=== PATIENT | male | born 2000 | race Caucasian/White ===

== ENCOUNTER 2020-09-12 08:48 | Observation (INO) | payer SELFPAY ==
[2020-09-12] VITALS (10 sets, daily range): BP systolic 107–146; BP diastolic 35–76; PULSE 60–115; TEMP 97.8–98.8
[~2020-09-12] VITALS: Ht 190.5 cm; Wt 96.4 kg
[2020-09-12 09:21] LABS: BASO % 0.1 % (0.0-2.0); EOS % 0.3 % (0-4.0); GRAN # 11.9 (1.4-6.5); GRAN % 78.8 % (42.2-75.2); HEMATOCRIT 44.1 % (36.0-47.0); HEMOGLOBIN 14.6 g/dl (12.5-16.1); LYMPH # 1.7 (1.2-3.4); LYMPH % 11.5 % (20.0-51.0); MEAN CELL VOLUME 88 fl (80.0-95.0); MEAN CORPUSCULAR HEMOGLOBIN 29 pg (26.0-32.0); MEAN CORPUSCULAR HGB CONC 33 g/dl (33.0-37.0); MEAN PLATELET VOLUME 9.4 fl (7.4-10.4); MONO # 1.4 (0.1-0.6); PLATELET COUNT 270 K/mm3 (130-400); REDCELL DISTRIBUTION WIDTH-CV 12.9 % (11.5-14.5)
[2020-09-12 09:41] LABS: ALBUMIN 4.7 gm/dL (3.5-5.0); BILIRUBIN,TOTAL 0.5 mg/dL (0.0-1.0); C-REACTIVE PROTEIN 0.6 mg/dL (0.0-0.9); CALCIUM 9.3 mg/dL (8.4-10.2); CREATININE, serum 0.72 (0.66-1.25); POTASSIUM 3.6 mmol/L (3.4-5.0); TOTAL PROTEIN 7.4 gm/dL (6.4-8.2)
[2020-09-12 09:55] LABS: COLLECTION METHOD CLEAN CATCH
[2020-09-12 10:04] LABS: MUCOUS Present /lpf; PH 7 (5-8); SQUAMOUS EPITHELIAL None Seen /hpf; URINE APPEARANCE Clear; URINE BACTERIA None Seen /hpf; URINE BILIRUBIN Negative (NEGATIVE); URINE BLOOD Negative (NEGATIVE); URINE COLOR Yellow; URINE GLUCOSE Negative (NEGATIVE); URINE KETONE Negative (NEGATIVE); URINE LEUKOCYTE ESTERASE Negative (NEGATIVE); URINE NITRATE Negative (NEGATIVE); URINE PROTEIN(semi-quant) Negative (NEGATIVE); URINE RBC 0-2 /hpf; URINE UROBILINOGEN Negative (NEGATIVE)
--- NOTE | 2020-09-12 13:28 | NUR ---
CALLED AND NOTIFIED OF PATIENT ARRIVAL TO FLOOR IN ROOM 329. TORB FOR DILAUDID 0.25MG IV Q1H PRN; ZOFRAN 4MG IV Q6H PRN; CONSENT PATIENT FOR LAPAROSCOPIC APPENDECTOMY FROM TO THIS NURSE. PLANS TO TAKE PATIENT TO THE OR APPROXIMATELY 1630.
--- NOTE | 2020-09-12 13:37 | NUR ---
PATIENT ADMISSION ASSESSMENT AND SCREENINGS COMPLETE. PATIENT IS ANXIOUS AND TEARFUL UPON ENTRY TO THE ROOM. TACHYCARDIA NOTED, OTHERWISE VSS. PATIENT REPORTING HIS PAIN A 5/10 ON A 0-10 SCALE. PATIENT REPORTS THAT IT IS A TOLERABLE LEVEL FOR HIM. IV FLUIDS RUNNING TO THE LEFT AC IV VIA PUMP. CONSENT FORM SIGNED AND PLACED ON PATIENTS CHART. PATIENT GIVEN PRIVACY PASS CODE. CALL LIGHT WITHIN REACH. PATIENT DENIES ANY OTHER NEEDS AT THIS TIME.
--- NOTE | 2020-09-12 15:50 | NUR ---
LR TO GRAVITY FLOW TUBING AND INFUSING TO LEFT AC IV.
--- NOTE | 2020-09-12 16:08 | NUR ---
PATIENT TAKEN TO HIWOT-OP VIA BED. WILL WAIT FOR PATIENT RETURN TO ROOM 329 POST-OP.
--- NOTE | 2020-09-12 17:50 | NUR ---
PATIENT ARRIVED BACK TO ROOM 329 POST-OP. VSS. ABDOMINAL LAP SITES X3 DRESSED WITH BANDAIDS AND ARE CD&I. SCD'S TO BLE. PATIENT TOLERATING CLEAR LIQUIDS. DINNER TRAY ORDERED. WILL CONTINUE TO MONITOR.
--- NOTE | 2020-09-12 19:05 | NUR ---
POST-OP VSS. PATIENT TOLERATING DIET WITHOUT AND COMPLAINTS OF N/V. PATIENT REPORTING MINOR DISCOMFORT AT INCISION SITES. IV TO INT.SHIFT REPORT GIVEN TO ASHOK TAYLOR.
--- NOTE | 2020-09-12 20:00 | NUR ---
PT AWAKE ALERT/ORIENTED X4. VSS. MILD ABD PAIN. NO NAUSAEA. ASSISTED UP TO BR/ STEADY GAIT. VOIDED LG AMT CLEAR YELLOW URINE. NO NEEDS AT THIS TIME. CALL LIGHT IN REACH. SEE MAR FOR ANY PAIN MEDS GIVEN.
[2020-09-13 00:38] VITALS: BP 117/52; PULSE 72; TEMP 98.3
[2020-09-13 04:05] VITALS: BP 109/55; PULSE 66; TEMP 97.8
[2020-09-13 07:45] VITALS: BP 134/68; PULSE 67; TEMP 98
--- NOTE | 2020-09-13 10:36 | NUR ---
Initial visit; Patient thanked Boom Crane Operator for stopping by and offering him God's blessings and a get-well message.
[2020-09-13 11:31] VITALS: BP 121/53; PULSE 83; TEMP 98.6
[2020-09-13] MEDS ORDERED: NORCO 325 MG-51 TAB PO (12:05)
--- NOTE | 2020-09-13 12:34 | NUR ---
Fire Prevention Inspector met with patient to discuss discharge planning. Patient lives in [place] with three roommates and works for [employer]. Patient states he moved here for school, but decided to stay in [place] for work. Patient does not have a primary care physician but was interested in obtaining list of local PCPs. ISMAEL provided and patient states he will review with his parents later today. Patient states his parents are Lisa (ph#[phone]) and Yonas (ph#[phone]) and that Yonas will pick him up this afternoon. Patient does not have current insurance coverage, however will have insurance after he's been at his job 30 days. Patient does not use any DME and is independent with [facility]. Patient does not have Advance Directives and will discharge home later today.
--- NOTE | 2020-09-13 13:00 | NUR ---
Patient is discharging home. Discharge instructions discussed with patient. No questions verbalized. INT discontinued. Influenza vaccine given. Explained erika follow up is. Copies of discharge instructions given to patient. Explained his pain medications were sent to pharmacy. All belongings packed up and sent with patient. Patient walked out with Amber SAWYER.
== END 2020-09-13 13:07 | disposition home or self-care (01) ==
LOC: COL.ER 08:48 → JCC 11:07
PROVIDERS: Family Medicine; ADMIT Surgery
DX: K35.80 Unspecified acute appendicitis (principal)
CPT/HCPCS: G0008; G0378; J0330; J1100; J1885; J2060; J2405; J2543; J2704; J3010; J7120; Q9967